=== PATIENT | female | born 1970 | race Caucasian/White ===

== ENCOUNTER 2019-01-30 21:45 | Emergency (ER) | payer MEDICAID | END 2019-01-30 21:50 | disposition left against medical advice (07) | LOC: ER 21:46 | DX: M79.89 Other specified soft tissue disorders (principal); R07.81 Pleurodynia; Z53.21 Procedure and treatment not carried out due to patient leaving prior to being seen by health care provider ==

== ENCOUNTER 2019-01-31 09:08 | Emergency (ER) | payer MEDICAID ==
[~2019-01-31] VITALS: Ht 172.7 cm; Wt 93.7 kg
[2019-01-31 09:15] VITALS: BP 124/91
== END 2019-01-31 11:10 | disposition left against medical advice (07) ==
LOC: ER 09:09
DX: R07.81 Pleurodynia (principal); Z53.21 Procedure and treatment not carried out due to patient leaving prior to being seen by health care provider

== ENCOUNTER 2019-04-17 20:52 | Emergency (ER) | payer MEDICAID | END 2019-04-17 21:37 | disposition left against medical advice (07) | LOC: ER 20:52 | DX: Z00.8 Encounter for other general examination (principal); Z53.21 Procedure and treatment not carried out due to patient leaving prior to being seen by health care provider ==

== ENCOUNTER 2022-08-23 21:29 | Emergency (ER) | payer MEDICAID ==
[~2022-08-23] VITALS: Ht 172.7 cm; Wt 100.0 kg
[2022-08-23 22:08] VITALS: BP 118/77
== END 2022-08-24 00:09 | disposition left against medical advice (07) ==
LOC: ER 21:30
DX: M25.571 Pain in right ankle and joints of right foot (principal); M79.671 Pain in right foot; Z53.21 Procedure and treatment not carried out due to patient leaving prior to being seen by health care provider

== ENCOUNTER 2022-09-20 20:46 | Emergency (ER) | payer MEDICAID ==
[~2022-09-20] VITALS: Ht 172.7 cm; Wt 100.3 kg
[2022-09-20 20:54] VITALS: BP 149/93
== END 2022-09-21 03:33 | disposition left against medical advice (07) ==
LOC: ER 20:48
DX: M79.604 Pain in right leg (principal); Z53.21 Procedure and treatment not carried out due to patient leaving prior to being seen by health care provider

== ENCOUNTER 2022-09-21 15:44 | Emergency (ER) | payer OTHER, MEDICAID ==
[~2022-09-21] VITALS: Ht 172.7 cm; Wt 104.5 kg
[2022-09-21 16:42] LABS: BASOPHILS % (AUTO) 0.3 % (0-1); EOSINOPHILS % (AUTO) 0.2 % (0-6); HEMATOCRIT 43.7 % (35.0-45.0); HEMOGLOBIN 14.1 g/dl (12.0-16.0); LYMPHOCYTES # (AUTO) 0.8 X10'3 (1.1-4.8); LYMPHOCYTES % (AUTO) 13.2 % (21-51); MEAN CORPUSCULAR HEMOGLOBIN 27.6 PG (27.0-31.0); MEAN CORPUSCULAR HGB CONC 32.2 g/dL (33.0-36.5); MEAN CORPUSCULAR VOLUME 85.8 FL (78-98); MEAN PLATELET VOLUME 8.1 FL (7.4-10.4); MONOCYTES # (AUTO) 0.1 X10'3 (0-0.9); MONOCYTES % (AUTO) 0.9 % (2-12); NEUTROPHILS # (AUTO) 4.9 X10'3 (1.8-7.7); NEUTROPHILS % (AUTO) 85.4 % (42-75); PLATELET COUNT 213 X10'3 (140-440); WHITE BLOOD COUNT 5.8 X10'3 (4.5-11.0)
[2022-09-21 16:47] LABS: ALANINE AMINOTRANSFERASE 48 U/L (12-78); ALBUMIN 4.1 G/DL (3.4-5.0); ALBUMIN/GLOBULIN RATIO 1.2 (1.1-1.5); ALKALINE PHOSPHATASE 100 IU/L (46-116); ANION GAP 10 (8-16); ASPARTATE AMINO TRANSFERASE 45 U/L (10-37); BILIRUBIN,TOTAL 0.5 MG/DL (0.1-1.0); BLOOD UREA NITROGEN 21 MG/DL (7-18); BUN/CREATININE RATIO 25.3 (6.6-38.0); CALCIUM 9.9 MG/DL (8.5-10.1); CHLORIDE 104 MMOL/L (99-107); CREATININE 0.83 MG/DL (0.40-0.90); GLUCOSE 141 MG/DL (70-104); POTASSIUM 3.7 MMOL/L (3.5-5.1); SODIUM 140 MMOL/L (135-145); TOTAL PROTEIN 7.6 G/DL (6.4-8.2); eGFR 72 ML/MIN
[2022-09-21] MEDS ORDERED: iohexol 300mg/ml 100ml inj. ONE (17:06)
--- NOTE | 2022-09-21 18:30 | NUR ---
RECEIVED REPORT FROM PAMELA TSE.
--- NOTE | 2022-09-21 18:43 | NUR ---
RADIOLOGIST CALLED REGARDING CERVICAL SPINE CT.
[2022-09-21] MEDS ORDERED: acetaminophen 325mg tablet PO ONE (18:55)
[2022-09-21 19:38] VITALS: BP 132/82
== END 2022-09-21 19:40 | disposition home or self-care (01) ==
LOC: ER 15:45
DX: S30.1XXA Contusion of abdominal wall, initial encounter (principal); S80.11XA Contusion of right lower leg, initial encounter; R07.89 Other chest pain; R51.9 Headache, unspecified; Z88.2 Allergy status to sulfonamides; Z88.8 Allergy status to other drugs, medicaments and biological substances; Z79.01 Long term (current) use of anticoagulants; Z79.899 Other long term (current) drug therapy; V87.7XXA Person injured in collision between other specified motor vehicles (traffic), initial encounter; Y93.89 Activity, other specified; Y92.488 Other paved roadways as the place of occurrence of the external cause; Y99.8 Other external cause status
CPT/HCPCS: 36415; 70450; 71260; 72125; 74177; 80053; 85025; 93971; 99285; J3490; Q9967

== ENCOUNTER 2022-09-26 15:57 | Emergency (ER) | payer MEDICAID ==
[~2022-09-26] VITALS: Ht 172.7 cm; Wt 104.5 kg
[2022-09-26 16:11] VITALS: BP 143/93
[2022-09-26 16:33] LABS: BASOPHILS % (AUTO) 0.2 % (0-1); EOSINOPHILS % (AUTO) 0.1 % (0-6); HEMATOCRIT 41.4 % (35.0-45.0); HEMOGLOBIN 13.4 g/dl (12.0-16.0); LYMPHOCYTES % (AUTO) 14.6 % (21-51); MEAN CORPUSCULAR HEMOGLOBIN 27.6 PG (27.0-31.0); MEAN CORPUSCULAR HGB CONC 32.3 g/dL (33.0-36.5); MEAN CORPUSCULAR VOLUME 85.5 FL (78-98); MEAN PLATELET VOLUME 7.5 FL (7.4-10.4); MONOCYTES # (AUTO) 0.1 X10'3 (0-0.9); MONOCYTES % (AUTO) 1.7 % (2-12); NEUTROPHILS # (AUTO) 5.9 X10'3 (1.8-7.7); NEUTROPHILS % (AUTO) 83.4 % (42-75); PLATELET COUNT 258 X10'3 (140-440); RED BLOOD COUNT 4.84 X10'6 (4.20-5.60)
[2022-09-26 16:49] LABS: CHLORIDE 106 MMOL/L (99-107); GLUCOSE 143 MG/DL (70-104); SODIUM 141 MMOL/L (135-145)
[2022-09-26 16:50] LABS: ALANINE AMINOTRANSFERASE 33 U/L (12-78); ALBUMIN 3.8 G/DL (3.4-5.0); ALKALINE PHOSPHATASE 82 IU/L (46-116); ANION GAP 10 (8-16); ASPARTATE AMINO TRANSFERASE 19 U/L (10-37); BILIRUBIN,TOTAL 0.5 MG/DL (0.1-1.0); BLOOD UREA NITROGEN 21 MG/DL (7-18); BUN/CREATININE RATIO 26.6 (6.6-38.0); CALCIUM 9.4 MG/DL (8.5-10.1); CREATININE 0.79 MG/DL (0.40-0.90); TOTAL CARBON DIOXIDE 24.6 MMOL/L (24-32); TOTAL PROTEIN 7.7 G/DL (6.4-8.2); eGFR 77 ML/MIN
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
== END 2022-09-26 20:11 | disposition left against medical advice (07) ==
LOC: ER 15:57
DX: R07.89 Other chest pain (principal); R10.9 Unspecified abdominal pain; R60.9 Edema, unspecified; Z53.21 Procedure and treatment not carried out due to patient leaving prior to being seen by health care provider
CPT/HCPCS: 36415; 71045; 80053; 83880; 84484; 85025; 93005

== ENCOUNTER 2024-03-17 04:43 | Emergency (ER) | payer MEDICAID ==
[~2024-03-17] VITALS: Ht 172.7 cm; Wt 100.0 kg
[2024-03-17 04:45] VITALS: TEMP 98
[2024-03-17] MEDS ORDERED: DOXY-460 (06:55)
[2024-03-17] MEDS ORDERED: CLIN300C71 (06:55)
[2024-03-17] MEDS ORDERED: ACET-655 (06:55)
[2024-03-17] MEDS ORDERED: APIX5TAB3 (06:55)
[2024-03-17] MEDS ORDERED: MUPI22OI30 (06:55)
[2024-03-17 07:36] LABS: ALBUMIN 3.3 G/DL (3.4-5.0); ANION GAP 6 (8-16); BLOOD UREA NITROGEN 19 MG/DL (7-18); BUN/CREATININE RATIO 22.6 (10.0-20.0); C-REACTIVE PROTEIN 0.74 MG/DL (0.0-0.5); CALCIUM 9.2 MG/DL (8.5-10.1); CHLORIDE 106 MMOL/L (99-107); CREATININE 0.84 MG/DL (0.40-0.90); GLUCOSE 110 MG/DL (70-104); POTASSIUM 3.8 MMOL/L (3.5-5.1); SODIUM 138 MMOL/L (135-145); TOTAL CARBON DIOXIDE 26.3 MMOL/L (24-32); eCRCL 78 ML/MIN; eGFR 71 ML/MIN
[2024-03-17 07:53] LABS: BASOPHILS # (AUTO) 0.1 X10'3 (0-0.2); BASOPHILS % (AUTO) 0.9 % (0-1); EOSINOPHILS # (AUTO) 0.3 X10'3 (0-0.9); EOSINOPHILS % (AUTO) 4.6 % (0-6); HEMATOCRIT 40.5 % (35.0-45.0); HEMOGLOBIN 12.8 g/dl (12.0-16.0); LYMPHOCYTES # (AUTO) 2.2 X10'3 (1.1-4.8); LYMPHOCYTES % (AUTO) 39.2 % (21-51); MEAN CORPUSCULAR HEMOGLOBIN 26.7 PG (27.0-31.0); MEAN CORPUSCULAR HGB CONC 31.5 g/dL (33.0-36.5); MEAN CORPUSCULAR VOLUME 84.5 FL (78-98); MEAN PLATELET VOLUME 7.9 FL (7.4-10.4); MONOCYTES # (AUTO) 0.4 X10'3 (0-0.9); MONOCYTES % (AUTO) 6.8 % (2-12); NEUTROPHILS # (AUTO) 2.7 X10'3 (1.8-7.7); NEUTROPHILS % (AUTO) 48.5 % (42-75); PLATELET COUNT 231 X10'3 (140-440); RED BLOOD COUNT 4.79 X10'6 (4.20-5.60); RED CELL DISTRIBUTION WIDTH 16.1 % (11.5-14.5); WHITE BLOOD COUNT 5.6 X10'3 (4.5-11.0)
[2024-03-17] MEDS ORDERED: HYDR-3973 PO (09:37)
[2024-03-17] MEDS: neomy sulf/bacitrac zn/polymixin b oint 14.2 gm tube TP ONE (10:00)
[2024-03-17 10:06] VITALS: BP 138/83; PULSE 74; RESP 16; O2SAT 100
== END 2024-03-17 10:10 | disposition home or self-care (01) ==
LOC: ER 04:44
DX: L98.499 Non-pressure chronic ulcer of skin of other sites with unspecified severity (principal); Z88.2 Allergy status to sulfonamides; Z79.899 Other long term (current) drug therapy; Z79.2 Long term (current) use of antibiotics; Z87.891 Personal history of nicotine dependence
CPT/HCPCS: 36415; 80048; 83605; 85025; 85651; 86140; 99283; A6258

== ENCOUNTER 2024-04-22 10:11 | Emergency (ER) | payer MEDICAID ==
[~2024-04-22] VITALS: Ht 172.7 cm; Wt 114.1 kg
[~2024-04-22 10:11] MED LIST: ACET-655; APIX5TAB3; CLIN300C71; DOXY-460; MUPI22OI30
[2024-04-22 11:18] VITALS: BP 146/99; PULSE 88; RESP 17; O2SAT 98
[2024-04-22 12:11] LABS: BASOPHILS # (AUTO) 0.1 X10'3 (0-0.2); EOSINOPHILS # (AUTO) 0.4 X10'3 (0-0.9); EOSINOPHILS % (AUTO) 7.3 % (0-6); HEMATOCRIT 39.1 % (35.0-45.0); HEMOGLOBIN 12.8 g/dl (12.0-16.0); LYMPHOCYTES # (AUTO) 1.7 X10'3 (1.1-4.8); LYMPHOCYTES % (AUTO) 31.7 % (21-51); MEAN CORPUSCULAR HEMOGLOBIN 27.6 PG (27.0-31.0); MEAN CORPUSCULAR HGB CONC 32.8 g/dL (33.0-36.5); MEAN CORPUSCULAR VOLUME 84.2 FL (78-98); MEAN PLATELET VOLUME 7.6 FL (7.4-10.4); MONOCYTES # (AUTO) 0.4 X10'3 (0-0.9); MONOCYTES % (AUTO) 7.3 % (2-12); NEUTROPHILS # (AUTO) 2.9 X10'3 (1.8-7.7); NEUTROPHILS % (AUTO) 52.7 % (42-75); PLATELET COUNT 283 X10'3 (140-440); RED BLOOD COUNT 4.65 X10'6 (4.20-5.60); RED CELL DISTRIBUTION WIDTH 15.4 % (11.5-14.5); WHITE BLOOD COUNT 5.4 X10'3 (4.5-11.0)
[2024-04-22 12:16] LABS: CHLORIDE 109 MMOL/L (99-107)
[2024-04-22 12:20] LABS: APTT 28 SECONDS (22-32); PROTHROMBIN TIME 10.3 SECONDS (9.0-12.0)
[2024-04-22 12:38] LABS: ALANINE AMINOTRANSFERASE 21 U/L (12-78); ALBUMIN 3.5 G/DL (3.4-5.0); ALBUMIN/GLOBULIN RATIO 0.8 (1.1-1.5); ALKALINE PHOSPHATASE 107 IU/L (46-116); ANION GAP 9 (8-16); ASPARTATE AMINO TRANSFERASE 16 U/L (10-37); BILIRUBIN,TOTAL 0.5 MG/DL (0.1-1.0); BLOOD UREA NITROGEN 19 MG/DL (7-18); BUN/CREATININE RATIO 24.1 (10.0-20.0); CALCIUM 9.7 MG/DL (8.5-10.1); CREATININE 0.79 MG/DL (0.40-0.90); GLUCOSE 97 MG/DL (70-104); SODIUM 142 MMOL/L (135-145); TOTAL CARBON DIOXIDE 23.8 MMOL/L (24-32); TOTAL PROTEIN 7.8 G/DL (6.4-8.2); eCRCL 83 ML/MIN; eGFR 76 ML/MIN
[2024-04-22] MEDS ORDERED: CLIN300C54 PO (13:05)
[2024-04-22] MEDS: CefTRIAXone 1000mg IM Kit (w/lidocaine diluent) IM ONE (13:13)
[2024-04-22 13:44] VITALS: TEMP 97.5
== END 2024-04-22 13:32 | disposition home or self-care (01) ==
LOC: ER 10:11
DX: L03.115 Cellulitis of right lower limb (principal); Z88.2 Allergy status to sulfonamides; Z88.8 Allergy status to other drugs, medicaments and biological substances
CPT/HCPCS: 36415; 80053; 83605; 84145; 85025; 85610; 85730; 87040; 96372; 99283; A6223; J0696; A6258; A6446; A6449

== ENCOUNTER 2024-05-02 00:59 | Inpatient (IN) | payer MEDICAID ==
[~2024-05-02] VITALS: Ht 172.7 cm; Wt 104.5 kg
[~2024-05-02 00:59] MED LIST changes: +CLIN300C54 PO
[2024-05-02] MEDS: vancomycin/NS 1 GM ADD-VANTAGE 250 ML IV ONE (02:34)
[2024-05-02 02:44] LABS: BILIRUBIN,URINE NEGATIVE (Neg); CLARITY,URINE CLEAR (Clear); COLOR,URINE YELLOW (Yellow); GLUCOSE, URINE NEGATIVE (Neg); KETONES,URINE NEGATIVE (Neg); LEUKOCYTE ESTERASE ,URINE NEGATIVE (Neg); NITRITES, URINE NEGATIVE (Neg); OCCULT BLOOD,URINE NEGATIVE (Neg); PH,URINE 6.5 (4.8-8.0); PROTEIN,URINE NEGATIVE (Neg); UROBILINOGEN,URINE 0.2 E.U/dL (0.2-1.0)
[2024-05-02 02:46] LABS: UA COLLECTION TYPE CLN CATCH MIDSTREAM
[2024-05-02 02:59] LABS: BASOPHILS # (AUTO) 0.1 X10'3 (0-0.2); EOSINOPHILS # (AUTO) 0.4 X10'3 (0-0.9); EOSINOPHILS % (AUTO) 6.5 % (0-6); HEMATOCRIT 38.6 % (35.0-45.0); HEMOGLOBIN 12.3 g/dl (12.0-16.0); LYMPHOCYTES # (AUTO) 2.1 X10'3 (1.1-4.8); LYMPHOCYTES % (AUTO) 34.8 % (21-51); MEAN CORPUSCULAR HEMOGLOBIN 26.7 PG (27.0-31.0); MEAN CORPUSCULAR HGB CONC 31.9 g/dL (33.0-36.5); MEAN CORPUSCULAR VOLUME 83.6 FL (78-98); MEAN PLATELET VOLUME 7.5 FL (7.4-10.4); MONOCYTES # (AUTO) 0.4 X10'3 (0-0.9); MONOCYTES % (AUTO) 6.8 % (2-12); NEUTROPHILS # (AUTO) 3.1 X10'3 (1.8-7.7); NEUTROPHILS % (AUTO) 50.9 % (42-75); PLATELET COUNT 287 X10'3 (140-440); RED BLOOD COUNT 4.61 X10'6 (4.20-5.60); RED CELL DISTRIBUTION WIDTH 15.5 % (11.5-14.5); WHITE BLOOD COUNT 6.1 X10'3 (4.5-11.0)
[2024-05-02 03:09] LABS: ALBUMIN 3.3 G/DL (3.4-5.0); ANION GAP 6 (8-16); BLOOD UREA NITROGEN 25 MG/DL (7-18); BUN/CREATININE RATIO 30.5 (10.0-20.0); C-REACTIVE PROTEIN 1.93 MG/DL (0.0-0.5); CALCIUM 9.4 MG/DL (8.5-10.1); CHLORIDE 107 MMOL/L (99-107); CREATININE 0.82 MG/DL (0.40-0.90); GLUCOSE 85 MG/DL (70-104); MAGNESIUM 2.2 MG/DL (1.5-2.4); POTASSIUM 3.7 MMOL/L (3.5-5.1); SODIUM 140 MMOL/L (135-145); TOTAL CARBON DIOXIDE 26.7 MMOL/L (24-32); eCRCL 80 ML/MIN; eGFR 73 ML/MIN
[2024-05-02] MEDS ORDERED: mag hydrox/Alum hydrox/simeth 30ml oral suspension PO PRN (04:30)
[2024-05-02] MEDS ORDERED: potassium Cl 40MEQ/1/2NS 520ml 520 ML IV PRN (04:30)
[2024-05-02] MEDS ORDERED: acetaminophen 325mg tablet PO PRN (04:30)
[2024-05-02] MEDS ORDERED: magnesium sulf-water 2g/50mL 50 ML IV PRN (04:30)
[2024-05-02] MEDS ORDERED: magnesium Cl slow-release 64mg tablet PO PRN (04:30)
[2024-05-02] MEDS ORDERED: magnesium sulf-water 4G/100mL 100 ML IV PRN (04:30)
[2024-05-02] MEDS ORDERED: potassium Cl 20 mEq SR tablet PO PRN ×2 (04:30)
[2024-05-02] MEDS ORDERED: magnesium hydroxide 30ml (MOM) UD suspension PO PRN (04:30)
[2024-05-02] MEDS ORDERED: ondansetron/PF 4mg/2ml inj IV PRN (04:30)
[2024-05-02] MEDS: CefTRIAXone/D5W-Rocephin 1gm 50 ML IV SCH (05:30)
[2024-05-02 06:55] VITALS: BP 135/71; PULSE 79; RESP 15; TEMP 97.5; O2SAT 100
[2024-05-02] MEDS: HYDROmorphone 1 mg/ml syringe IV ONE (08:38)
[2024-05-02 09:06] LABS: HEMOGLOBIN A1C 5.6 % (4.5-6.2)
[2024-05-02] MEDS: apixaban 5mg tablet PO SCH (09:13)
[2024-05-02] MEDS: HYDROcodone/acetaminophen 10/325mg tab PO PRN (09:13)
[2024-05-02] MEDS: docusate sod 100mg capsule PO SCH (09:13)
[2024-05-02] MEDS: K and/or MAG REPLACEMENT MC SCH (09:14)
[2024-05-02 10:00] VITALS: BP 140/72; PULSE 81; RESP 16; TEMP 97.7; O2SAT 100
[2024-05-02] MEDS: vancomycin/NS 1 GM ADD-VANTAGE 250 ML IV SCH (11:04)
[2024-05-02 16:01] LABS: URINE AMPHETAMINE SCREEN POSITIVE (Neg); URINE BARBITUATE SCREEN NEGATIVE (Neg); URINE BENZODIAZEPINES SCREEN NEGATIVE (Neg); URINE CANNABINOID SCREEN NEGATIVE (Neg); URINE COCAINE SCREEN NEGATIVE (Neg); URINE METHADONE SCREEN NEGATIVE (Neg); URINE OPIATE SCREEN POSITIVE (Neg); URINE PHENCYCLIDINE SCREEN NEGATIVE (Neg)
[2024-05-02 18:00] VITALS: BP 149/87; PULSE 82; RESP 18; TEMP 97.8; O2SAT 97
[2024-05-02] MEDS: acetaminophen 325mg tablet PO PRN (19:05)
[2024-05-02] MEDS ORDERED: enoxaparin 40mg/0.4ml syringe SQ SCH (20:00)
[2024-05-02 20:55] VITALS: RESP 18; O2SAT 96
[2024-05-02 22:00] VITALS: BP 142/71; PULSE 88; RESP 17; TEMP 98.7; O2SAT 97
[2024-05-03] MEDS: VANCOMYCIN LEVEL IV ONE (02:08)
[2024-05-03 02:19] LABS: BASOPHILS % (AUTO) 1.1 % (0-1); EOSINOPHILS # (AUTO) 0.3 X10'3 (0-0.9); EOSINOPHILS % (AUTO) 6.8 % (0-6); HEMATOCRIT 36.5 % (35.0-45.0); HEMOGLOBIN 11.8 g/dl (12.0-16.0); LYMPHOCYTES # (AUTO) 1.8 X10'3 (1.1-4.8); LYMPHOCYTES % (AUTO) 42.2 % (21-51); MEAN CORPUSCULAR HEMOGLOBIN 26.9 PG (27.0-31.0); MEAN CORPUSCULAR HGB CONC 32.2 g/dL (33.0-36.5); MEAN CORPUSCULAR VOLUME 83.7 FL (78-98); MEAN PLATELET VOLUME 7.5 FL (7.4-10.4); MONOCYTES # (AUTO) 0.3 X10'3 (0-0.9); MONOCYTES % (AUTO) 6.6 % (2-12); NEUTROPHILS # (AUTO) 1.9 X10'3 (1.8-7.7); NEUTROPHILS % (AUTO) 43.3 % (42-75); PLATELET COUNT 255 X10'3 (140-440); RED BLOOD COUNT 4.36 X10'6 (4.20-5.60); RED CELL DISTRIBUTION WIDTH 15.3 % (11.5-14.5); WHITE BLOOD COUNT 4.3 X10'3 (4.5-11.0)
[2024-05-03 02:29] LABS: ALANINE AMINOTRANSFERASE 23 U/L (12-78); ALBUMIN 2.7 G/DL (3.4-5.0); ALBUMIN/GLOBULIN RATIO 0.8 (1.1-1.5); ALKALINE PHOSPHATASE 89 IU/L (46-116); ANION GAP 3 (8-16); ASPARTATE AMINO TRANSFERASE 21 U/L (10-37); BILIRUBIN,TOTAL 0.3 MG/DL (0.1-1.0); BLOOD UREA NITROGEN 17 MG/DL (7-18); BUN/CREATININE RATIO 22.1 (10.0-20.0); CALCIUM 8.7 MG/DL (8.5-10.1); CHLORIDE 111 MMOL/L (99-107); CREATININE 0.77 MG/DL (0.40-0.90); GLUCOSE 107 MG/DL (70-104); POTASSIUM 4.2 MMOL/L (3.5-5.1); SODIUM 141 MMOL/L (135-145); TOTAL CARBON DIOXIDE 27.3 MMOL/L (24-32); TOTAL PROTEIN 6.3 G/DL (6.4-8.2); VANCOMYCIN,TROUGH 20.4 ug/mL (10.0-20.0); eCRCL 85 ML/MIN; eGFR 78 ML/MIN
[2024-05-03 06:00] VITALS: BP 122/66; PULSE 72; RESP 18; TEMP 97.2; O2SAT 95
[2024-05-03 08:30] VITALS: RESP 18; O2SAT 97
[2024-05-03] MEDS: HYDROcodone/acetaminophen 10/325mg tab PO PRN (09:42)
[2024-05-03 10:00] VITALS: BP 129/73; PULSE 68; RESP 20; TEMP 97.2; O2SAT 97
[2024-05-03] MEDS ORDERED: MULT-25 PO (10:39)
[2024-05-03] MEDS ORDERED: DOXY-460 PO (10:39)
[2024-05-03] MEDS ORDERED: APIX5TAB3 PO (10:39)
[2024-05-03] MEDS: bisacodyl 10mg suppository rectal RC STA (11:04)
[2024-05-03 11:05] VITALS: RESP 18
[2024-05-03] MEDS: lactobacillus rhamnosus 10,000 MMU CELLS/CAPSULE PO SCH (11:06)
[2024-05-03] MEDS ORDERED: HYDR-3965 PO (11:30)
[2024-05-03] MEDS ORDERED: VANCOMYCIN 750MG IV in NS 250 ML IV SCH (19:00)
[2024-05-04] MEDS ORDERED: VANCOMYCIN LEVEL IV ONE (18:30)
== END 2024-05-03 14:05 | disposition home or self-care (01) | DRG 383 ==
LOC: ER 00:59 → ED HOLD 04:37 → EDBEDREQ 05:14 → ORTHO 4S 05:45 → SUR 3N 20:55
PROVIDERS: ADMIT Internal Medicine Critical Care Medicine; ATTEND Internal Medicine
DX: L03.115 Cellulitis of right lower limb (principal); G93.41 Metabolic encephalopathy; D68.59 Other primary thrombophilia; L97.818 Non-pressure chronic ulcer of other part of right lower leg with other specified severity; I87.2 Venous insufficiency (chronic) (peripheral); Z86.718 Personal history of other venous thrombosis and embolism; Z88.5 Allergy status to narcotic agent; Z88.2 Allergy status to sulfonamides; Z79.01 Long term (current) use of anticoagulants; Z79.899 Other long term (current) drug therapy; Z90.49 Acquired absence of other specified parts of digestive tract
CPT/HCPCS: 36415; 71045; 80048; 80053; 80202; 80305; 81003; 83036; 83605; 83735; 84145; 85025; 85651; 86140; 87040; 87081; 93005; 93306; 93970; 96365; 97116; 97161; 97530; 99285; A6196; A6446; A6449; G0378; J0696; J3370; J7040

== ENCOUNTER 2024-05-24 00:42 | Emergency (ER) | payer MEDICAID ==
[~2024-05-24] VITALS: Ht 172.7 cm; Wt 102.8 kg
[~2024-05-24 00:42] MED LIST changes: -APIX5TAB3; +APIX5TAB3 PO; -CLIN300C54 PO; -CLIN300C71; -DOXY-460; +DOXY-460 PO; +MULT-25 PO
[2024-05-24 01:16] VITALS: BP 141/82; PULSE 82; RESP 16; TEMP 97.8; O2SAT 98
== END 2024-05-24 02:58 | disposition left against medical advice (07) ==
LOC: ER 00:43
DX: M79.661 Pain in right lower leg (principal); R21 Rash and other nonspecific skin eruption; Z53.21 Procedure and treatment not carried out due to patient leaving prior to being seen by health care provider